=== PATIENT | male | born 1950 | race Caucasian/White ===

== ENCOUNTER 2016-10-14 09:51 | Emergency (ER) | payer MEDICARE, OTHER ==
[2016-10-14 10:02] VITALS: BP 166/85
--- NOTE | 2016-10-14 10:30 | EDM.PDOC ---
ED HPI GENERAL MEDICAL PROBLEM - General Chief Complaint: Genitourinary Problem Stated Complaint: UNABLE TO URINATE POST PROSTATE BIOPSY YESTERDAY Time Seen by Provider: 10/14/16 10:05 Source of Information: Reports: Patient, Family History Limitations: Reports: No Limitations - History of Present Illness INITIAL COMMENTS - FREE TEXT/NARRATIVE: The patient had a prostate biopsy yesterday. He was able to urinate after the procedure and on the way home. He has not been able to urinate since 2am. He has 10 out of 10 pain in the superpubic area. He denies, fever, chills, cough, chest pain, shortness of breath, nausea or vomiting. He is diaphoretic. Onset: Today (2am) Duration: Hour(s): Location: Reports: Abdomen (Suprapubic) Quality: Reports: Sharp Severity: Severe Improves with: Reports: None Worsens with: Reports: None Context: Reports: Activity (He had a prostate biopsy yesterday) Associated Symptoms: Reports: No Other Symptoms Bladder Pain Score (Numeric/FACES): 10 - Related Data Allergies Allergy/AdvReac Type Severity Reaction Status Date / Time ciprofloxacin [From Cipro] Allergy Swollen Verified 10/14/16 10:04 Eyes latex Allergy Rash Verified 10/14/16 10:04 lidocaine Allergy Swollen Verified 10/14/16 10:04 Eyes povidone-iodine Allergy Itching Verified 10/14/16 10:20 [From Betadine] procaine Allergy Airway Verified 10/14/16 10:41 Tightness soap [From Betadine] Allergy Rash Verified 10/14/16 10:41 Home Meds: Home Meds Propranolol [Inderal LA] 80 mg PO BEDTIME 10/14/16 [History] Propranolol [Inderal LA] 120 mg PO ACBREAKFAST 10/14/16 [History] Sulfamethoxazole/Trimethoprim [Bactrim 400-80 MG] 2 tab PO BID 10/14/16 [History ] Past Medical History Cardiovascular History: Reports: [place] Respiratory History: Reports: COPD Psychiatric History: Reports: Addiction Other Psychiatric History: smoking and alcohol Dermatologic History: Reports: Eczema - Past Surgical History GI Surgical History: Reports: Appendectomy, Hernia Repair/Other Male Surgical History: Reports: Prostate Biopsy Other Musculoskeletal Surgeries/Procedures:: back surgery x2, neck surgery x2 Social & Family History - Family History Family Medical History: Noncontributory - Tobacco Use Smoking Status *Q: Former Smoker Used Tobacco, but Quit: Yes Month Tobacco Last Used: 2014 - Caffeine Use Caffeine Use: Reports: None - Recreational Drug Use Recreational Drug Use: No ED ROS GENERAL - Review of Systems Review Of Systems: See Below Constitutional: Reports: No Symptoms HEENT: Reports: No Symptoms Respiratory: Reports: No Symptoms Cardiovascular: Reports: No Symptoms Endocrine: Reports: No Symptoms GI/Abdominal: Reports: Abdominal Pain (Suprapubic) : Reports: Urinary Retention Musculoskeletal: Reports: No Symptoms Skin: Reports: No Symptoms ED EXAM, RENAL/ - Physical Exam Exam: See Below Exam Limited By: No Limitations General Appearance: Alert, Moderate Distress Ears: Normal External Exam Nose: Normal Inspection Head: Atraumatic, Normocephalic Neck: Normal Inspection Respiratory/Chest: No Respiratory Distress, Lungs Clear, Normal Breath Sounds Cardiovascular: Regular Rate, Rhythm, No Edema, No Murmur GI/Abdominal: Soft, Distended (suprapubic), Tender (Moderate to the lower abdomen.) Course - Vital Signs Last Recorded V/S: Last Vital Signs Temp 96.6 F 10/14/16 09:59 Pulse 57 L 10/14/16 09:59 Resp 18 10/14/16 09:59 BP 166/85 H 10/14/16 09:59 Pulse Ox 94 L 10/14/16 09:59 - Orders/Labs/Meds Orders: Active Orders 24 hr Category Date Time Status Insert Grijalva Catheter [Insert Urinary Catheter] [OM.PC] Care 10/14/16 10:15 Ordered Q24H Urinary Catheter Assessment [RC] ASDIRECTED Care 10/14/16 10:13 Active Labs: Laboratory Tests 10/14/16 Range/Units 10:56 Urine Color Light yellow (Yellow) Urine Appearance Clear (Clear) Urine pH 6.5 (5.0-8.0) Ur Specific [place] 1.015 (1.005-1.030) Urine Protein Negative (Negative) Urine Glucose (UA) Negative (Negative) Urine Ketones Negative (Negative) Urine Occult Blood 2+ H (Negative) Urine Nitrite Negative (Negative) Urine Bilirubin Negative (Negative) Urine Urobilinogen 0.2 (0.2-1.0) Ur Leukocyte Esterase Negative (Negative) Urine RBC 5-10 H (0-5) /hpf Urine WBC 0-5 (0-5) /hpf Ur Epithelial Cells Not seen (0-5) /hpf Urine Bacteria Few (FEW) /hpf Urine Mucus Few (FEW) /hpf - Re-Assessments/Exams Free Text/Narrative Re-Assessment/Exam: 10/14/16 10:29 I ordered a grijalva cath and I will get a UA. 10/14/16 11:49 There was over 1500mls of urine drained from his bladder. His UA was negative for UTI. He had a small amount of blood. I will leave the catheter in and I will have him call his urologist Dr Jimenes. Departure - Departure Time of Disposition: 11:50 Disposition: Home, Self-Care 01 Condition: Good Clinical Impression: Acute urinary retention - Discharge Information Referrals: Yumiko Kate, [employer] [Primary Care Provider] - Forms: ED Department Discharge Additional Instructions: Leave the grijalva catheter in place. Call Dr Jimenes's office to see when he would want the catheter out. Please return if you have any more problems. - My Orders Last 24 Hours: My Active Orders 10/14/16 10:13 Urinary Catheter Assessment [RC] ASDIRECTED 10/14/16 10:15 Insert Grijalva Catheter [Insert Urinary Catheter] [OM.PC] Q24H - Assessment/Plan Last 24 Hours: My Active Orders 10/14/16 10:13 Urinary Catheter Assessment [RC] ASDIRECTED 10/14/16 10:15 Insert Grijalva Catheter [Insert Urinary Catheter] [OM.PC] Q24H
== END 2016-10-14 12:05 | disposition home or self-care (01) ==
LOC: JD.ED 09:51
DX: R33.9 Retention of urine, unspecified (principal); I25.2 Old myocardial infarction; J44.9 Chronic obstructive pulmonary disease, unspecified; Z90.49 Acquired absence of other specified parts of digestive tract; Z98.890 Other specified postprocedural states; Z87.891 Personal history of nicotine dependence; Z88.8 Allergy status to other drugs, medicaments and biological substances; Z88.1 Allergy status to other antibiotic agents; Z91.040 Latex allergy status
CPT/HCPCS: 51702; 81001; 99283; 99284-25

== ENCOUNTER 2016-11-04 09:00 | Emergency (ER) | payer MEDICARE, OTHER ==
--- NOTE | 2016-11-04 15:43 | EDM.PDOC ---
ED HPI GENERAL MEDICAL PROBLEM - General Chief Complaint: Genitourinary Problem Stated Complaint: CATHETER NOT WORKING Time Seen by Provider: 11/04/16 09:41 Source of Information: Reports: Patient, Family (), RN Notes Reviewed History Limitations: Reports: No Limitations - History of Present Illness INITIAL COMMENTS - FREE TEXT/NARRATIVE: The patient states that he was unable to urinate this past Wednesday and Wednesday, 10/31/2016 and 11/01/2016. A Da Silva catheter was placed at the [facility] on 11/02/2016. The patient states that the Da Silva initially worked, then stopped working the same day, after he developed gross hematuria. He states that he has not had any urine output into the Da Silva since then. He has since developed suprapubic abdominal pain. He states that he contacted the [facility], and they suggested that his pain was due to irritation from the Da Silva, and did not recommend any treatment. The patient states that he had prior inability to urinate after a prostate biopsy, requiring a catheter for about one week. The patient's urologist is Dr. Jimenes. His PCP is Yumiko Kate. Lower Abdomen Pain Score (Numeric/FACES): 8 - Related Data Allergies Allergy/AdvReac Type Severity Reaction Status Date / Time ciprofloxacin [From Cipro] Allergy Swollen Verified 11/04/16 09:17 Eyes latex Allergy Rash Verified 11/04/16 09:17 lidocaine Allergy Swollen Verified 11/04/16 09:17 Eyes povidone-iodine Allergy Itching Verified 11/04/16 09:17 [From Betadine] procaine Allergy Airway Verified 11/04/16 09:17 Tightness soap [From Betadine] Allergy Rash Verified 11/04/16 09:17 Home Meds: Home Meds Propranolol [Inderal LA] 80 mg PO BEDTIME 10/14/16 [History] Propranolol [Inderal LA] 120 mg PO ACBREAKFAST 10/14/16 [History] Tamsulosin [Flomax] 1 tab PO DAILY 11/04/16 [History] Past Medical History Genitourinary History: Reports: BPH, Renal Calculus Neurological History: Reports: Other (See Below) (Essential tremor) Dermatologic History: Reports: Eczema - Past Surgical History GI Surgical History: Reports: Appendectomy, Hernia, Abdominal (umbilical), Hernia, Inguinal (right) Male Surgical History: Reports: Prostate Biopsy Neurological Surgical History: Reports: C-Spine (ACDF + PCDF), Lumbar Spine ( fusion x 2) Musculoskeletal Surgical History: Reports: Shoulder Surgery (right, open) Social & Family History - Family History Family Medical History: Noncontributory - Tobacco Use Smoking Status *Q: Former Smoker Years of Tobacco use: 40 Packs/Tins Daily: 1.5 Month Tobacco Last Used: Quit 2014 - Caffeine Use Caffeine Use: Reports: Soda - Alcohol Use Alcohol Use History: Yes Alcohol Use in Last Twelve Months: No - Recreational Drug Use Recreational Drug Use: No - Living Situation & Occupation Living situation: Reports: , with Spouse Occupation: Retired ED ROS GENERAL - Review of Systems Review Of Systems: See Below Constitutional: Reports: No Symptoms HEENT: Reports: No Symptoms Respiratory: Reports: No Symptoms Cardiovascular: Reports: No Symptoms Endocrine: Reports: No Symptoms GI/Abdominal: Reports: No Symptoms : Reports: Hematuria, Urinary Retention Musculoskeletal: Reports: No Symptoms Skin: Reports: No Symptoms Neurological: Reports: No Symptoms Psychiatric: Reports: No Symptoms Hematologic/Lymphatic: Reports: No Symptoms Immunologic: Reports: No Symptoms ED EXAM, RENAL/ - Physical Exam Exam: See Below Exam Limited By: No Limitations General Appearance: Alert, WD/WN, Mild Distress (appears quite uncomfortable) Eye Exam: Bilateral Eye: Normal Inspection Ears: Normal External Exam, Hearing Grossly Normal Nose: Normal Inspection, No Blood Throat/Mouth: Normal Inspection, Normal Lips, Normal Voice, No Airway Compromise Head: Atraumatic, Normocephalic Neck: Normal Inspection, Full Range of Motion Respiratory/Chest: No Respiratory Distress, Lungs Clear, Normal Breath Sounds, No Accessory Muscle Use Cardiovascular: Normal Peripheral Pulses, Regular Rate, Rhythm, No Gallop, No JVD, No Murmur, No Rub GI/Abdominal: Normal Bowel Sounds, Soft, No Organomegaly, No Distention, No Abnormal Bruit, No Mass, Distended, Tender (In the suprapubic region only. Nontender elsewhere.) (Male) Exam: Deferred Rectal (Males) Exam: Deferred Back Exam: Normal Inspection, Full Range of Motion, NT Extremities: Normal Inspection, Normal Range of Motion, No Pedal Edema, Normal Capillary Refill Neurological: Alert, Oriented, Normal Cognition, No Motor/Sensory Deficits Psychiatric: Normal Affect Skin Exam: Warm, Dry, Intact, Normal Color, No Rash Lymphatic: No Adenopathy Course - Vital Signs Last Recorded V/S: Last Vital Signs Temp 36.7 C 11/04/16 09:10 Pulse 68 11/04/16 16:08 Resp 16 11/04/16 16:08 BP 127/80 11/04/16 16:08 Pulse Ox 99 11/04/16 16:08 - Re-Assessments/Exams Free Text/Narrative Re-Assessment/Exam: 11/04/16 15:37 The nurse attempted to irrigate through the patient's existing catheter, however , she was getting very poor return, therefore she replaced it with a new one. The patient has subsequently urinated approximately 2100 mL of dark jeremy urine. Departure - Departure Time of Disposition: 15:38 Disposition: Home, Self-Care 01 Condition: Good Clinical Impression: Obstructed Da Silva catheter, Gross hematuria - Discharge Information Instructions: Da Silva Catheter Care, Adult, [id number], Hematuria, Adult Referrals: Sky Jimenes MD [Physician] - Forms: ED Department Discharge Additional Instructions: You were seen in the emergency room after being unable to urinate through your Da Silva catheter since 11/02/2016. Your Da Silva catheter was obstructed with blood clot. After changing to a new catheter, approximately 2100 mL of urine was drained. Continue to manage this Da Silva catheter as you have the previous one. Make sure that the bag is below your body height when you lie down. Follow-up with your Urologist, Dr. Jimenes, at the next available appointment. If any other problems, or if the catheter obstructs again, please do not hesitate to return to the ER.
[2016-11-04 16:10] VITALS: BP 127/80
== END 2016-11-04 16:00 | disposition home or self-care (01) ==
LOC: JD.ED 09:00
DX: T83.091A Other mechanical complication of indwelling urethral catheter, initial encounter (principal); R31.0 Gross hematuria; Z90.49 Acquired absence of other specified parts of digestive tract; Z87.442 Personal history of urinary calculi; Z98.890 Other specified postprocedural states; Z79.899 Other long term (current) drug therapy; Z88.6 Allergy status to analgesic agent; Z88.1 Allergy status to other antibiotic agents; Z88.8 Allergy status to other drugs, medicaments and biological substances; Z91.040 Latex allergy status; Z87.891 Personal history of nicotine dependence
CPT/HCPCS: 51702; 51798; 99282; 99283-25

== ENCOUNTER 2016-12-19 13:44 | Emergency (ER) | payer MEDICARE, OTHER ==
[2016-12-19 13:57] VITALS: BP 147/71
[2016-12-19] MEDS ORDERED: HYDROmorphone 0.5 MG/0.5 ML Syringe IVPUSH ONE (14:57)
[2016-12-19] MEDS ORDERED: Sodium Chloride 0.9% 10 ML Syringe FLUSH PRN (14:58)
[2016-12-19] MEDS ORDERED: Belladonna Alkaloids/Opium 16.2-30 MG Supp RECTAL ONE (14:58)
--- NOTE | 2016-12-19 15:00 | EDM.PDOC ---
ED HPI GENERAL MEDICAL PROBLEM - General Chief Complaint: Genitourinary Problem Stated Complaint: GROIN PAIN Time Seen by Provider: 12/19/16 14:42 Source of Information: Reports: Patient History Limitations: Reports: No Limitations - History of Present Illness INITIAL COMMENTS - FREE TEXT/NARRATIVE: Patient is a 66 y/o male who presents to the E.D. complaining of abdias hematuria from indwelling grijalva catheter. States he has an enlarged prostate requiring laser resection. Meantime patient has had a indwelling grijalva catheter in place. States yesterday while kneeling down felt a pop to his suprapubic region with instant pain. States ever since has had little urine output with increasing pain to the lower abdomen. Has history of reoccurring UTI's and states last urine culture was positive for bacteria. He was instructed to take macrobid 10 days prior to surgery that will take place 2016. Denies Fever/chills, n/v, drainage around catheter or any additional complaints. Bladder Pain Score (Numeric/FACES): 8 - Related Data Allergies Allergy/AdvReac Type Severity Reaction Status Date / Time ciprofloxacin [From Cipro] Allergy Swollen Verified 11/04/16 09:17 Eyes latex Allergy Rash Verified 11/04/16 09:17 lidocaine Allergy Swollen Verified 11/04/16 09:17 Eyes povidone-iodine Allergy Itching Verified 11/04/16 09:17 [From Betadine] procaine Allergy Airway Verified 11/04/16 09:17 Tightness soap [From Betadine] Allergy Rash Verified 11/04/16 09:17 Home Meds: Home Meds Propranolol [Inderal LA] 80 mg PO BEDTIME 10/14/16 [History] Propranolol [Inderal LA] 120 mg PO ACBREAKFAST 10/14/16 [History] Tamsulosin [Flomax] 1 tab PO DAILY 11/04/16 [History] Past Medical History Cardiovascular History: Reports: Hypertension, [place] Respiratory History: Reports: COPD Genitourinary History: Reports: BPH, Renal Calculus Neurological History: Reports: Other (See Below) Psychiatric History: Reports: Addiction Other Psychiatric History: smoking and alcohol Dermatologic History: Reports: Eczema - Past Surgical History GI Surgical History: Reports: Appendectomy, Hernia, Abdominal, Hernia, Inguinal Male Surgical History: Reports: Prostate Biopsy Neurological Surgical History: Reports: C-Spine, Lumbar Spine Musculoskeletal Surgical History: Reports: Shoulder Surgery Social & Family History - Family History Family Medical History: Noncontributory - Tobacco Use Smoking Status *Q: Never Smoker Years of Tobacco use: 40 Packs/Tins Daily: 1.5 Used Tobacco, but Quit: Yes Month Tobacco Last Used: Quit 2014 - Caffeine Use Caffeine Use: Reports: Soda - Recreational Drug Use Recreational Drug Use: No - Living Situation & Occupation Living situation: Reports: , with Spouse Occupation: Retired ED ROS GENERAL - Review of Systems Review Of Systems: ROS reveals no pertinent complaints other than HPI. ED EXAM, RENAL/ - Physical Exam Exam: See Below Exam Limited By: No Limitations General Appearance: Alert, WD/WN, No Apparent Distress Ears: Normal External Exam Nose: Normal Inspection Throat/Mouth: Normal Voice, No Airway Compromise Neck: Normal Inspection, Supple Respiratory/Chest: No Respiratory Distress, Lungs Clear, Normal Breath Sounds Cardiovascular: Normal Peripheral Pulses, Regular Rate, Rhythm GI/Abdominal: Normal Bowel Sounds, No Organomegaly, Distended, Tender ( Suprapubic region. ) (Male) Exam: Other (Grijalva Catheter in place with no hematuria/urine from around grijalva catheter in place. Grijalva bag has abdias hematuria present. ) Back Exam: Normal Inspection. No: CVA Tenderness (L), CVA Tenderness (R) Extremities: Normal Inspection Neurological: Alert, Oriented, CN II-XII Intact, Normal Cognition Psychiatric: Normal Affect, Normal Mood Skin Exam: Warm, Dry, Intact, Normal Color Course - Vital Signs Last Recorded V/S: Last Vital Signs Temp 97.1 F 12/19/16 13:55 Pulse 82 12/19/16 13:55 Resp 20 12/19/16 13:55 BP 147/71 H 12/19/16 13:55 Pulse Ox 95 12/19/16 13:55 - Orders/Labs/Meds Labs: Laboratory Tests 12/19/16 12/19/16 12/19/16 Range/Units 15:15 15:15 15:50 WBC 13.35 H (4.23-9.07) K/mm3 RBC 5.19 (4.63-6.08) M/mm3 Hgb 15.9 (13.7-17.5) gm/L Hct 46.3 (40.1-51.0) % MCV 89.2 (79.0-92.2) fl MCH 30.6 (25.7-32.2) pg MCHC 34.3 (32.2-35.5) g/dl RDW Std Deviation 47.8 H (35.1-43.9) fL Plt Count 170 (163-337) K/mm3 MPV 11.3 (9.4-12.3) fl Neut % (Auto) 77.8 H (34.0-67.9) % Lymph % (Auto) 12.4 L (21.8-53.1) % [place] % (Auto) 7.7 (5.3-12.2) % Eos % (Auto) 1.3 (0.8-7.0) Baso % (Auto) 0.4 (0.1-1.2) % Neut # (Auto) 10.39 H (1.78-5.38) K/mm3 Lymph # (Auto) 1.65 (1.32-3.57) K/mm3 [place] # (Auto) 1.03 H (0.30-0.82) K/mm3 Eos # (Auto) 0.18 (0.04-0.54) K/mm3 Baso # (Auto) 0.05 (0.01-0.08) K/mm3 Sodium 141 (136-145) mEq/L Potassium 3.8 (3.5-5.1) mEq/L Chloride 105 (98-107) mEq/L Carbon Dioxide 27 (21-32) mEq/L Anion Gap 12.8 (5-15) BUN 18 (7-18) mg/dL Creatinine 1.1 (0.7-1.3) mg/dL Est Cr Clr Drug Dosing 74.65 mL/min Estimated GFR (MDRD) > 60 (>60) mL/min BUN/Creatinine Ratio 16.4 (14-18) Glucose 117 H (80-115) mg/dL Calcium 9.8 (8.5-10.1) mg/dL Total Bilirubin 0.7 (0.2-1.0) mg/dL AST 32 (15-37) U/L ALT 27 (16-63) U/L Alkaline Phosphatase 84 (46-116) U/L C-Reactive Protein 2.4 H* (<1.0) mg/dL Total Protein 8.1 (6.4-8.2) g/dl Albumin 4.1 (3.4-5.0) g/dl Globulin 4.0 gm/dL Albumin/Globulin Ratio 1.0 (1-2) Urine Color Yellow (Yellow) Urine Appearance Cloudy H (Clear) Urine pH 6.0 (5.0-8.0) Ur Specific [place] 1.020 (1.005-1.030) Urine Protein Negative (Negative) Urine Glucose (UA) Negative (Negative) Urine Ketones Negative (Negative) Urine Occult Blood 2+ H (Negative) Urine Nitrite Positive H (Negative) Urine Bilirubin Negative (Negative) Urine Urobilinogen 0.2 (0.2-1.0) Ur Leukocyte Esterase 1+ H (Negative) Urine RBC 10-20 H (0-5) /hpf Urine WBC >100 H (0-5) /hpf Ur Epithelial Cells 0-5 (0-5) /hpf Urine Bacteria Many H (FEW) /hpf Urine Mucus Few (FEW) /hpf Meds: Medications Discontinued Medications Generic Name Dose Route Start Last Admin Trade Name Freq PRN Reason Stop Dose Admin Belladonna Alkaloids/Opium 1 supp 12/19/16 14:58 12/19/16 15:20 B & O Supprettes No. 15a RECTAL 12/19/16 14:59 1 supp ONETIME ONE Administration Hydromorphone HCl 0.5 mg 12/19/16 14:57 12/19/16 15:20 Dilaudid IVPUSH 12/19/16 14:58 0.5 mg ONETIME ONE Administration Nitrofurantoin Macrocrystals 100 mg 12/19/16 17:19 12/19/16 17:23 Macrobid PO 12/19/16 17:20 100 mg ONETIME ONE Administration Sodium Chloride 10 ml 12/19/16 14:58 12/19/16 15:21 Saline Flush FLUSH 10 ml ASDIRECTED PRN Administration Keep Vein Open - Re-Assessments/Exams Free Text/Narrative Re-Assessment/Exam: IV established with Dilaudid 0.5 mg IVP. Ordered. No rectal suppository for bladder spasms. Bladder scan will be obtained prior to removing the Grijalva catheter. Insertion a new Grijalva catheter will be placed. UA and urine culture will be obtained. Basic labs ordered. Per nursing staff Grijalva was flushed with copious amounts of blood clots present. New Grijalva was inserted was was slightly larger. Partially 60 12/19/161656 Labs reviewed: White blood cell count 13.35, hemoglobin 15.9, neutrophil percentage is 77.8, neutrophil number is 10.39, chemistry panel essentially normal. CRP 2.4. UA revealed appearance cloudy, occult blood 2+, nitrates positive, leukocyte esterase 1+, urine rbc's 10-20, urine wbc's greater than 100, urine bacteria many. Urine culture obtained. 1656 Contacted the on-call urologist at [facility]. Dr. Rankin suggested no antibiotic therapy. Patient has colonization secondary to chronic catheter use. As long as the patient's comfortable and does not have a fever or drastic elevation in WBC no antibiotics are required. At this point I did share the results of his labs and he does not believe patient needs antibiotics. We' ll discharge patient home with instructions as documented. 1707 Per nursing staff urine smells, sedimentation present, grossly positive for infection. Not colonization. Spoke with Dr. Rankin again. Reviewed last office visit on December 11, 2016. Patient was discharged with a prescription for Macrobid to start taking 10 days prior to surgery. Dr. Rankin did review sensitivity list from previous urine culture completed at that time. He suggest starting the Macrobid today. Will have patient Contact Dr. Maddox's clinic this coming Wednesday to discuss recent event and start of antibiotic. Discharge instructions as documented. 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, Grijalva catheter in place, Gross hematuria, Acute urinary retention UTI (urinary tract infection) Qualifiers: Urinary tract infection type: catheter-associated UTI Indwelling urinary catheter type: indwelling urethral catheter Encounter type: initial encounter Qualified Code(s): T83.511A - Infection and inflammatory reaction due to indwelling urethral catheter, initial encounter Hematuria Qualifiers: Hematuria type: gross Qualified Code(s): R31.0 - Gross hematuria Obstructed Grijalva catheter Qualifiers: Encounter type: initial encounter Qualified Code(s): T83.091A - Other mechanical complication of indwelling urethral catheter, initial encounter - Discharge Information Instructions: Grijalva Catheter Care, Adult, Urinary Tract Infection, Adult, Easy- to-Read Referrals: Yumiko Kate NP [Primary Care Provider] - Andrea Maddox MD [Ordering Only Provider] - Forms: ED Department Discharge Additional Instructions: As discussed will have you start taking Macrobid as prescribed by Dr. Maddox. Call his office Wednesday morning to advise him that grijalva catheter was replaced and started on the Macrobid. Push the fluids. Return to the ED as needed for any new or worsening symptoms.
[2016-12-19] MEDS ORDERED: Nitrofurantoin Monohydrate/Macrocrystalline 100 MG Cap PO ONE (17:19)
== END 2016-12-19 17:45 | disposition home or self-care (01) ==
LOC: JD.ED 13:44
DX: T83.511A Infection and inflammatory reaction due to indwelling urethral catheter, initial encounter (principal); T83.091A Other mechanical complication of indwelling urethral catheter, initial encounter; R31.0 Gross hematuria; R33.9 Retention of urine, unspecified; Z22.321 Carrier or suspected carrier of Methicillin susceptible Staphylococcus aureus; I10 Essential (primary) hypertension; I25.2 Old myocardial infarction; J44.9 Chronic obstructive pulmonary disease, unspecified; Z87.442 Personal history of urinary calculi; Z90.49 Acquired absence of other specified parts of digestive tract; Z98.890 Other specified postprocedural states; Z87.891 Personal history of nicotine dependence; Z79.899 Other long term (current) drug therapy; Z88.1 Allergy status to other antibiotic agents; Z88.6 Allergy status to analgesic agent; Z88.8 Allergy status to other drugs, medicaments and biological substances; Z91.040 Latex allergy status; Z91.048 Other nonmedicinal substance allergy status
CPT/HCPCS: 36415; 51702; 51798; 80053; 81001; 85025; 86140; 87086; 87088; 87186; 96374; 99284; A9270; J1170; J7050

== ENCOUNTER 2024-06-28 13:29 | Inpatient (IN) | payer MEDICARE, OTHER ==
[2024-06-28] MEDS ORDERED: Sodium Chloride 0.9% 10 ML Syringe FLUSH PRN ×2 (13:59→14:05)
[2024-06-28 14:11] LABS: EOSINOPHILS ABSOLUTE AUTO 0.2 K/mm3 (0.0-0.4); EOSINOPHILS PERCENT AUTO 0.8 % (0.0-6.0); HEMATOCRIT 15.6 % (42.0-52.0); IMMATURE GRAN ABSOLUTE AUTO 1.02 K/mm3 (0.00-0.05); IMMATURE GRAN PERCENT AUTO 5.6 % (0.0-0.4); LYMPHOCYTES PERCENT AUTO 16.6 % (24.0-44.0); MEAN CORPUSCULAR HEMOGLOBIN 38.9 pg (28.0-32.0); MEAN CORPUSCULAR HGB CONC 31.4 g/dl (32.0-36.0); MEAN PLATELET VOLUME 13.5 fl (9.4-12.4); MONOCYTES ABSOLUTE AUTO 5.8 K/mm3 (0.0-0.8); MONOCYTES PERCENT AUTO 31.6 % (0.0-8.0); NEUTROPHILS ABSOLUTE AUTO 8.3 K/mm3 (1.8-7.7); NEUTROPHILS PERCENT AUTO 45.4 % (41.0-71.0); NRBC ABSOLUTE 0.02 (0.00-0.02); NRBC PERCENT 0.1 % (0.0-0.2); RED BLOOD CELL COUNT 1.26 M/mm3 (4.52-5.90)
[2024-06-28 14:24] LABS: HEMOGLOBIN 4.9 gm/dl (14.0-18.0); MEAN CORPUSCULAR VOLUME 123.8 fl (83.0-99.0); WHITE BLOOD CELL COUNT,WBC 18.26 K/mm3 (3.9-11.3)
[2024-06-28 14:26] LABS: PLATELET COUNT,PLT 205 K/mm3 (150-400)
[2024-06-28 14:36] LABS: A/G RATIO 1.1 (1-2); ALBUMIN 3.7 g/dl (3.4-5.0); ANION GAP 16.9 (5-15); BILIRUBIN TOTAL 0.4 mg/dL (0.2-1.0); BUN/CREATININE RATIO 15.8 (14-18); CALCIUM 8.4 mg/dL (8.5-10.1); CREATININE 1.2 mg/dL (0.7-1.3); EST CRCL DRUG DOSING (CG) 60.18 mL/min; MAGNESIUM 2.1 mg/dL (1.8-2.4); POTASSIUM,K 3.9 mEq/L (3.5-5.1); PROTEIN TOTAL,TP 7.1 g/dl (6.4-8.2)
[2024-06-28] MEDS: Iopamidol 612 MG/ML 100 ML Bottle IVPUSH ONE (14:48)
[2024-06-28 15:32] LABS: SLIDE REVIEW ABNORMAL SMEAR
[2024-06-28] MEDS ORDERED: Acetaminophen 325 MG Tab PO PRN (15:47)
[2024-06-28 15:57] LABS: RETICULOCYTE COUNT PERCENT 2.9 % (0.50-2.00)
[2024-06-28] MEDS: cefTRIAXone 2 GM Vial IVPUSH ONE (16:28)
[2024-06-28 17:16] LABS: TSH 1.257 uIU/mL (0.358-3.74)
[2024-06-28 17:21] LABS: LACTIC ACID 1.5 mmol/L (0.4-2.0)
[2024-06-28] MEDS ORDERED: 50% Dextrose in Water 50 ML Syringe IVPUSH PRN (17:46)
[2024-06-28 18:03] LABS: INR 1.15; PROTHROMBIN TIME 12.1 SECONDS (9.7-12.0)
[2024-06-28 20:18] LABS: FOLIC ACID 56.7 ng/mL (8.6-58.9)
[2024-06-28] MEDS: Doxycycline 100 MG in Sodium Chloride 0.9% 100 ML IV SCH (20:51)
[2024-06-28] MEDS ORDERED: Furosemide 20 MG/2 ML VIAL IVPUSH ONE (22:14)
[2024-06-28] MEDS: Insulin Lispro 100 Unit/ML 3 ML KwikPen SUBCUT SCH (22:20)
[2024-06-28] MEDS: Furosemide 20 MG/2 ML VIAL IVPUSH ONE (22:28)
[2024-06-29] MEDS: Furosemide 20 MG/2 ML VIAL IVPUSH ONE (04:34)
[2024-06-29 04:39] LABS: BASOPHILS PERCENT AUTO 0.1 % (0.0-1.0); EOSINOPHILS ABSOLUTE AUTO 0.1 K/mm3 (0.0-0.4); EOSINOPHILS PERCENT AUTO 0.7 % (0.0-6.0); HEMATOCRIT 22.6 % (42.0-52.0); HEMOGLOBIN 7.5 gm/dl (14.0-18.0); IMMATURE GRAN ABSOLUTE AUTO 0.84 K/mm3 (0.00-0.05); IMMATURE GRAN PERCENT AUTO 5.7 % (0.0-0.4); LYMPHOCYTES ABSOLUTE AUTO 2.8 K/mm3 (1.0-4.8); LYMPHOCYTES PERCENT AUTO 18.6 % (24.0-44.0); MEAN CORPUSCULAR HEMOGLOBIN 34.7 pg (28.0-32.0); MEAN CORPUSCULAR HGB CONC 33.2 g/dl (32.0-36.0); MEAN CORPUSCULAR VOLUME 104.6 fl (83.0-99.0); MEAN PLATELET VOLUME 13.6 fl (9.4-12.4); MONOCYTES ABSOLUTE AUTO 4.4 K/mm3 (0.0-0.8); NEUTROPHILS ABSOLUTE AUTO 6.6 K/mm3 (1.8-7.7); NEUTROPHILS PERCENT AUTO 44.9 % (41.0-71.0); PLATELET COUNT,PLT 166 K/mm3 (150-400); RED BLOOD CELL COUNT 2.16 M/mm3 (4.52-5.90); WHITE BLOOD CELL COUNT,WBC 14.75 K/mm3 (3.9-11.3)
[2024-06-29] MEDS: Propranolol 60 MG Cap.ER PO SCH (05:32)
[2024-06-29 05:41] LABS: A/G RATIO 1.1 (1-2); ALBUMIN 3.4 g/dl (3.4-5.0); ANION GAP 14.7 (5-15); BILIRUBIN TOTAL 0.6 mg/dL (0.2-1.0); BUN/CREATININE RATIO 16.4 (14-18); CALCIUM 8.3 mg/dL (8.5-10.1); CREATININE 1.1 mg/dL (0.7-1.3); EST CRCL DRUG DOSING (CG) 65.65 mL/min; POTASSIUM,K 3.7 mEq/L (3.5-5.1); PROTEIN TOTAL,TP 6.5 g/dl (6.4-8.2)
[2024-06-29 07:11] LABS: SLIDE REVIEW ABNORMAL SMEAR
[2024-06-29] MEDS: Potassium Chloride 20 MEQ Tab.ER PO ONE (09:52)
[2024-06-29 10:19] LABS: MAGNESIUM 2.1 mg/dL (1.8-2.4)
[2024-06-29 11:40] LABS: HEMATOCRIT 23.3 % (42.0-52.0); HEMOGLOBIN 7.7 gm/dl (14.0-18.0)
[2024-06-29 12:47] LABS: BANDS% 2 % (0-5); BASOPHILS% 0 % (0-1); EOSINOPHILS% 1 % (0-6); HYPERSEG Seen (Absent); HYPOCHRO 1+ /hpf; LYMPHOCYTES% 23 % (23-46); MACRO 3+ /hpf; MONOCYTES% 16 % (2-11); NEUTROPHILS% 50 % (41-71); PLT ESTIMATE Adequate; POLYCHRO 1+ /hpf; TEARDROP 1+ /hpf
[2024-06-29] MEDS: cefTRIAXone 1 GM Vial IVPUSH SCH (15:31)
[2024-06-29 20:11] LABS: HEMATOCRIT 23.6 % (42.0-52.0); HEMOGLOBIN 7.8 gm/dl (14.0-18.0)
[2024-06-29] MEDS: Melatonin 3 MG Tab PO SCH (21:27)
[2024-06-30 04:41] LABS: BASOPHILS PERCENT AUTO 0.1 % (0.0-1.0); EOSINOPHILS ABSOLUTE AUTO 0.1 K/mm3 (0.0-0.4); EOSINOPHILS PERCENT AUTO 0.8 % (0.0-6.0); HEMATOCRIT 23.2 % (42.0-52.0); HEMOGLOBIN 7.6 gm/dl (14.0-18.0); IMMATURE GRAN PERCENT AUTO 6.3 % (0.0-0.4); LYMPHOCYTES ABSOLUTE AUTO 2.7 K/mm3 (1.0-4.8); LYMPHOCYTES PERCENT AUTO 16.9 % (24.0-44.0); MEAN CORPUSCULAR HEMOGLOBIN 34.4 pg (28.0-32.0); MEAN CORPUSCULAR HGB CONC 32.8 g/dl (32.0-36.0); MEAN PLATELET VOLUME 13.6 fl (9.4-12.4); MONOCYTES ABSOLUTE AUTO 4.8 K/mm3 (0.0-0.8); MONOCYTES PERCENT AUTO 30.1 % (0.0-8.0); NEUTROPHILS ABSOLUTE AUTO 7.3 K/mm3 (1.8-7.7); NEUTROPHILS PERCENT AUTO 45.8 % (41.0-71.0); PLATELET COUNT,PLT 176 K/mm3 (150-400); RED BLOOD CELL COUNT 2.21 M/mm3 (4.52-5.90)
[2024-06-30 06:23] LABS: SLIDE REVIEW ABNORMAL SMEAR
[2024-06-30 14:47] VITALS: BP 106/57; PULSE 68
== END 2024-06-30 12:15 | disposition home or self-care (01) | DRG 811 ==
LOC: JD.ED 13:29 → JD.MS 15:47
PROVIDERS: ADMIT Family Medicine; ATTEND Family Medicine
PROC: 30233N1 Transfusion of Nonautologous Red Blood Cells into Peripheral Vein, Percutaneous Approach (ICD-10-PCS; 2024-06-28)
PROC: 30233N1 Transfusion of Nonautologous Red Blood Cells into Peripheral Vein, Percutaneous Approach (ICD-10-PCS; principal; 2024-06-29)
DX: D58.9 Hereditary hemolytic anemia, unspecified (principal); D64.89 Other specified anemias; J18.9 Pneumonia, unspecified organism; I47.20 Ventricular tachycardia, unspecified; I10 Essential (primary) hypertension; J44.9 Chronic obstructive pulmonary disease, unspecified; N40.0 Benign prostatic hyperplasia without lower urinary tract symptoms; G47.33 Obstructive sleep apnea (adult) (pediatric); Z91.048 Other nonmedicinal substance allergy status; R25.1 Tremor, unspecified; E11.9 Type 2 diabetes mellitus without complications; Z88.1 Allergy status to other antibiotic agents; Z91.040 Latex allergy status; Z88.8 Allergy status to other drugs, medicaments and biological substances; Z79.899 Other long term (current) drug therapy; I25.2 Old myocardial infarction; Z90.49 Acquired absence of other specified parts of digestive tract; Z98.890 Other specified postprocedural states
CPT/HCPCS: 74177; 80053; 82272; 82607; 82728; 82746; 83540; 83615; 83690; 83735; 84100; 84153; 84443; 84466; 84484; 85007; 85025; 85027; 85045; 85046; 85610; 86140; 86850; 86900; 86901; 86922; 93005; 99285; Q9967; 36415; 36430; 82947; 83605; 85014; 85018; 87040; 93306; 94660; 94761; A9270-GY; J0696; J1815; J1940; J3490; P9016

== ENCOUNTER 2025-01-27 10:46 | Inpatient (IN) | payer MEDICARE, OTHER ==
[2025-01-27 11:56] LABS: BASOPHILS ABSOLUTE AUTO 0.0 K/mm3 (0.0-0.2); BASOPHILS PERCENT AUTO 0.1 % (0.0-1.0); EOSINOPHILS ABSOLUTE AUTO 0.2 K/mm3 (0.0-0.4); EOSINOPHILS PERCENT AUTO 1.3 % (0.0-6.0); IMMATURE GRAN ABSOLUTE AUTO 0.16 K/mm3 (0.00-0.05); IMMATURE GRAN PERCENT AUTO 1.0 % (0.0-0.4); LYMPHOCYTES ABSOLUTE AUTO 2.9 K/mm3 (1.0-4.8); LYMPHOCYTES PERCENT AUTO 18.4 % (24.0-44.0); MEAN PLATELET VOLUME 13.2 fl (9.4-12.4); MONOCYTES ABSOLUTE AUTO 4.1 K/mm3 (0.0-0.8); MONOCYTES PERCENT AUTO 25.8 % (0.0-8.0); NEUTROPHILS ABSOLUTE AUTO 8.4 K/mm3 (1.8-7.7); NEUTROPHILS PERCENT AUTO 53.4 % (41.0-71.0); NRBC ABSOLUTE 0.00 (0.00-0.02); NRBC PERCENT 0.0 % (0.0-0.2); PLATELET COUNT,PLT 356 K/mm3 (150-400); RED BLOOD CELL COUNT 2.67 M/mm3 (4.52-5.90); WHITE BLOOD CELL COUNT,WBC 15.67 K/mm3 (3.9-11.3)
[2025-01-27 12:06] LABS: A/G RATIO 1.1 (1-2); ALANINE AMINOTRANSFERASE,ALT 31.0 U/L (16-63); ASPARTATE AMNIOTRANSFERASE,AST 22.0 U/L (15-37); BILIRUBIN TOTAL 0.5 mg/dL (0.2-1.0); BLOOD UREA NITROGEN,BUN 14.0 mg/dL (7-18); CARBON DIOXIDE,CO2 27.0 mEq/L (21-32); CHLORIDE,CL 109.0 mEq/L (98-107); CREATININE 1.2 mg/dL (0.7-1.3); EST CRCL DRUG DOSING (CG) 59.28 mL/min; ESTIMATED GFR 63.0 mL/min (>60); GLUCOSE RANDOM 180.0 mg/dL (70-99); POTASSIUM,K 3.5 mEq/L (3.5-5.1); PROTEIN TOTAL,TP 7.0 g/dl (6.4-8.2); SODIUM,NA 145.0 mEq/L (136-145)
[2025-01-27 12:13] LABS: LACTIC ACID 3.3 mmol/L (0.4-2.0)
[2025-01-27] MEDS: Sodium Chloride 0.9% 10 ML Syringe FLUSH PRN (12:40)
[2025-01-27 13:51] LABS: APPEARANCE,URINE CLEAR (Clear); GLUCOSE,URINE TRACE (Negative); OCCULT BLOOD,URINE NEGATIVE (Negative)
[2025-01-27 13:59] LABS: EPITHELIAL CELLS,URINE 0-5 /hpf (0-5)
[2025-01-27] MEDS ORDERED: Albuterol 0.083% 2.5 MG/3 ML Neb Soln NEB PRN (14:26)
[2025-01-27] MEDS: VANCOmycin 1.75 GM/350 ML 1.75 GM in Premix Bag 1 BAG IV ONE (15:08)
[2025-01-27 18:15] LABS: LACTIC ACID 1.7 mmol/L (0.4-2.0)
[2025-01-28 05:33] LABS: BASOPHILS ABSOLUTE AUTO 0.0 K/mm3 (0.0-0.2); BASOPHILS PERCENT AUTO 0.1 % (0.0-1.0); EOSINOPHILS ABSOLUTE AUTO 0.2 K/mm3 (0.0-0.4); EOSINOPHILS PERCENT AUTO 0.8 % (0.0-6.0); IMMATURE GRAN ABSOLUTE AUTO 0.21 K/mm3 (0.00-0.05); IMMATURE GRAN PERCENT AUTO 1.0 % (0.0-0.4); LYMPHOCYTES ABSOLUTE AUTO 2.7 K/mm3 (1.0-4.8); LYMPHOCYTES PERCENT AUTO 12.7 % (24.0-44.0); MEAN PLATELET VOLUME 12.4 fl (9.4-12.4); MONOCYTES ABSOLUTE AUTO 6.6 K/mm3 (0.0-0.8); MONOCYTES PERCENT AUTO 31.2 % (0.0-8.0); NEUTROPHILS ABSOLUTE AUTO 11.5 K/mm3 (1.8-7.7); NEUTROPHILS PERCENT AUTO 54.2 % (41.0-71.0); NRBC ABSOLUTE 0.00 (0.00-0.02); NRBC PERCENT 0.0 % (0.0-0.2); PLATELET COUNT,PLT 329 K/mm3 (150-400); RED BLOOD CELL COUNT 2.44 M/mm3 (4.52-5.90); WHITE BLOOD CELL COUNT,WBC 21.25 K/mm3 (3.9-11.3)
[2025-01-28 05:58] LABS: A/G RATIO 1.0 (1-2); ALANINE AMINOTRANSFERASE,ALT 26.0 U/L (16-63); ASPARTATE AMNIOTRANSFERASE,AST 20.0 U/L (15-37); BILIRUBIN TOTAL 0.7 mg/dL (0.2-1.0); BLOOD UREA NITROGEN,BUN 10.0 mg/dL (7-18); CARBON DIOXIDE,CO2 24.0 mEq/L (21-32); CHLORIDE,CL 107.0 mEq/L (98-107); CREATININE 1.0 mg/dL (0.7-1.3); EST CRCL DRUG DOSING (CG) 71.13 mL/min; ESTIMATED GFR 79.0 mL/min (>60); GLUCOSE RANDOM 154.0 mg/dL (70-99); POTASSIUM,K 3.5 mEq/L (3.5-5.1); PROTEIN TOTAL,TP 6.5 g/dl (6.4-8.2); SODIUM,NA 140.0 mEq/L (136-145)
[2025-01-28] MEDS: Potassium Chloride 20 MEQ Tab.ER PO ONE (09:26)
[2025-01-28] MEDS: Cefepime 2 GM in Water For Injection, Sterile 20 ML IVPUSH SCH (10:58)
[2025-01-28] MEDS: VANCOmycin 1.25 GM/250 ML 1.25 GM in Premix Bag 1 BAG IV SCH (12:11)
[2025-01-28] MEDS: Ondansetron 4 MG/2 ML SDV IV PRN (12:11)
[2025-01-28] MEDS: Insulin Lispro 100 Unit/ML 3 ML KwikPen SUBCUT SCH (19:31)
[2025-01-29 05:57] LABS: BASOPHILS ABSOLUTE AUTO 0.0 K/mm3 (0.0-0.2); BASOPHILS PERCENT AUTO 0.1 % (0.0-1.0); EOSINOPHILS ABSOLUTE AUTO 0.3 K/mm3 (0.0-0.4); EOSINOPHILS PERCENT AUTO 1.4 % (0.0-6.0); IMMATURE GRAN ABSOLUTE AUTO 0.21 K/mm3 (0.00-0.05); IMMATURE GRAN PERCENT AUTO 1.1 % (0.0-0.4); LYMPHOCYTES ABSOLUTE AUTO 2.9 K/mm3 (1.0-4.8); LYMPHOCYTES PERCENT AUTO 15.2 % (24.0-44.0); MEAN PLATELET VOLUME 13.0 fl (9.4-12.4); MONOCYTES ABSOLUTE AUTO 6.7 K/mm3 (0.0-0.8); MONOCYTES PERCENT AUTO 34.9 % (0.0-8.0); NEUTROPHILS ABSOLUTE AUTO 9.0 K/mm3 (1.8-7.7); NEUTROPHILS PERCENT AUTO 47.3 % (41.0-71.0); NRBC ABSOLUTE 0.00 (0.00-0.02); NRBC PERCENT 0.0 % (0.0-0.2); PLATELET COUNT,PLT 324 K/mm3 (150-400); RED BLOOD CELL COUNT 2.35 M/mm3 (4.52-5.90); WHITE BLOOD CELL COUNT,WBC 19.07 K/mm3 (3.9-11.3)
[2025-01-29 06:22] LABS: A/G RATIO 0.9 (1-2); ALANINE AMINOTRANSFERASE,ALT 24.0 U/L (16-63); ASPARTATE AMNIOTRANSFERASE,AST 20.0 U/L (15-37); BILIRUBIN TOTAL 0.6 mg/dL (0.2-1.0); BLOOD UREA NITROGEN,BUN 9.0 mg/dL (7-18); CARBON DIOXIDE,CO2 22.0 mEq/L (21-32); CHLORIDE,CL 108.0 mEq/L (98-107); CREATININE 1.0 mg/dL (0.7-1.3); EST CRCL DRUG DOSING (CG) 71.13 mL/min; ESTIMATED GFR 79.0 mL/min (>60); GLUCOSE RANDOM 153.0 mg/dL (70-99); POTASSIUM,K 3.6 mEq/L (3.5-5.1); PROTEIN TOTAL,TP 6.4 g/dl (6.4-8.2); SODIUM,NA 142.0 mEq/L (136-145); VANCOMYCIN RANDOM 18.8 ug/mL
[2025-01-29] MEDS: Potassium Chloride 20 MEQ Tab.ER PO ONE (15:24)
[2025-01-29 15:47] LABS: MEAN PLATELET VOLUME 12.7 fl (9.4-12.4); NRBC ABSOLUTE 0.00 (0.00-0.02); NRBC PERCENT 0.0 % (0.0-0.2); PLATELET COUNT,PLT 325 K/mm3 (150-400); RED BLOOD CELL COUNT 2.81 M/mm3 (4.52-5.90); WHITE BLOOD CELL COUNT,WBC 21.03 K/mm3 (3.9-11.3)
[2025-01-29 16:16] LABS: BLOOD UREA NITROGEN,BUN 11.0 mg/dL (7-18); CARBON DIOXIDE,CO2 24.0 mEq/L (21-32); CHLORIDE,CL 110.0 mEq/L (98-107); CREATININE 1.0 mg/dL (0.7-1.3); EST CRCL DRUG DOSING (CG) 71.13 mL/min; ESTIMATED GFR 79.0 mL/min (>60); GLUCOSE RANDOM 148.0 mg/dL (70-99); POTASSIUM,K 3.7 mEq/L (3.5-5.1); SODIUM,NA 143.0 mEq/L (136-145)
[2025-01-29] MEDS: Water For Injection, Sterile 20 ML ONE (17:25)
[2025-01-30 07:43] LABS: BASOPHILS ABSOLUTE AUTO 0.0 K/mm3 (0.0-0.2); BASOPHILS PERCENT AUTO 0.2 % (0.0-1.0); EOSINOPHILS ABSOLUTE AUTO 0.2 K/mm3 (0.0-0.4); EOSINOPHILS PERCENT AUTO 0.9 % (0.0-6.0); IMMATURE GRAN ABSOLUTE AUTO 0.23 K/mm3 (0.00-0.05); IMMATURE GRAN PERCENT AUTO 1.2 % (0.0-0.4); LYMPHOCYTES ABSOLUTE AUTO 3.3 K/mm3 (1.0-4.8); LYMPHOCYTES PERCENT AUTO 16.8 % (24.0-44.0); MEAN PLATELET VOLUME 12.9 fl (9.4-12.4); MONOCYTES ABSOLUTE AUTO 6.4 K/mm3 (0.0-0.8); MONOCYTES PERCENT AUTO 32.9 % (0.0-8.0); NEUTROPHILS ABSOLUTE AUTO 9.3 K/mm3 (1.8-7.7); NEUTROPHILS PERCENT AUTO 48.0 % (41.0-71.0); NRBC ABSOLUTE 0.00 (0.00-0.02); NRBC PERCENT 0.0 % (0.0-0.2); PLATELET COUNT,PLT 324 K/mm3 (150-400); RED BLOOD CELL COUNT 2.95 M/mm3 (4.52-5.90); WHITE BLOOD CELL COUNT,WBC 19.37 K/mm3 (3.9-11.3)
[2025-01-30 08:06] LABS: A/G RATIO 0.9 (1-2); ALANINE AMINOTRANSFERASE,ALT 24.0 U/L (16-63); ASPARTATE AMNIOTRANSFERASE,AST 18.0 U/L (15-37); BILIRUBIN TOTAL 0.5 mg/dL (0.2-1.0); BLOOD UREA NITROGEN,BUN 11.0 mg/dL (7-18); CARBON DIOXIDE,CO2 23.0 mEq/L (21-32); CHLORIDE,CL 109.0 mEq/L (98-107); CREATININE 1.0 mg/dL (0.7-1.3); EST CRCL DRUG DOSING (CG) 71.13 mL/min; ESTIMATED GFR 79.0 mL/min (>60); GLUCOSE RANDOM 163.0 mg/dL (70-99); POTASSIUM,K 3.6 mEq/L (3.5-5.1); PROTEIN TOTAL,TP 6.8 g/dl (6.4-8.2); SODIUM,NA 144.0 mEq/L (136-145)
[2025-01-30] MEDS: Propranolol 60 MG Cap.ER PO SCH (12:19)
[2025-01-31 10:56] LABS: BASOPHILS ABSOLUTE AUTO 0.0 K/mm3 (0.0-0.2); BASOPHILS PERCENT AUTO 0.2 % (0.0-1.0); EOSINOPHILS ABSOLUTE AUTO 0.3 K/mm3 (0.0-0.4); EOSINOPHILS PERCENT AUTO 1.6 % (0.0-6.0); IMMATURE GRAN ABSOLUTE AUTO 0.30 K/mm3 (0.00-0.05); IMMATURE GRAN PERCENT AUTO 1.7 % (0.0-0.4); LYMPHOCYTES ABSOLUTE AUTO 3.1 K/mm3 (1.0-4.8); LYMPHOCYTES PERCENT AUTO 17.5 % (24.0-44.0); MEAN PLATELET VOLUME 13.0 fl (9.4-12.4); MONOCYTES ABSOLUTE AUTO 5.1 K/mm3 (0.0-0.8); MONOCYTES PERCENT AUTO 29.0 % (0.0-8.0); NEUTROPHILS ABSOLUTE AUTO 8.8 K/mm3 (1.8-7.7); NEUTROPHILS PERCENT AUTO 50.0 % (41.0-71.0); NRBC ABSOLUTE 0.00 (0.00-0.02); NRBC PERCENT 0.0 % (0.0-0.2); PLATELET COUNT,PLT 364 K/mm3 (150-400); RED BLOOD CELL COUNT 2.92 M/mm3 (4.52-5.90); WHITE BLOOD CELL COUNT,WBC 17.63 K/mm3 (3.9-11.3)
[2025-01-31 13:55] VITALS: BP 121/62; PULSE 64
== END 2025-01-31 13:47 | disposition home or self-care (01) | DRG 871 ==
LOC: JD.ED 10:46 → JD.MS 14:20
PROVIDERS: ADMIT Family Medicine; ATTEND Family Medicine
PROC: 3E03329 Introduction of Other Anti-infective into Peripheral Vein, Percutaneous Approach (ICD-10-PCS; principal; 2025-01-27)
PROC: 30233N1 Transfusion of Nonautologous Red Blood Cells into Peripheral Vein, Percutaneous Approach (ICD-10-PCS; principal; 2025-01-27)
PROC: 5A09357 Assistance with Respiratory Ventilation, Less than 24 Consecutive Hours, Continuous Positive Airway Pressure (ICD-10-PCS; principal; 2025-01-27)
DX: A41.9 Sepsis, unspecified organism (principal); J18.9 Pneumonia, unspecified organism; J96.01 Acute respiratory failure with hypoxia; J44.0 Chronic obstructive pulmonary disease with (acute) lower respiratory infection; D84.821 Immunodeficiency due to drugs; H54.7 Unspecified visual loss; E78.5 Hyperlipidemia, unspecified; I25.10 Atherosclerotic heart disease of native coronary artery without angina pectoris; R65.20 Severe sepsis without septic shock; D46.9 Myelodysplastic syndrome, unspecified; I48.91 Unspecified atrial fibrillation; T45.1X5A Adverse effect of antineoplastic and immunosuppressive drugs, initial encounter; D64.81 Anemia due to antineoplastic chemotherapy; I10 Essential (primary) hypertension; N40.0 Benign prostatic hyperplasia without lower urinary tract symptoms; R59.1 Generalized enlarged lymph nodes; E11.9 Type 2 diabetes mellitus without complications; Z86.16 Personal history of COVID-19; Z90.49 Acquired absence of other specified parts of digestive tract; I25.2 Old myocardial infarction; Z98.890 Other specified postprocedural states; Z88.8 Allergy status to other drugs, medicaments and biological substances; Z91.040 Latex allergy status; Z79.899 Other long term (current) drug therapy; Z87.442 Personal history of urinary calculi; Z79.84 Long term (current) use of oral hypoglycemic drugs; Z88.1 Allergy status to other antibiotic agents
CPT/HCPCS: 36415; 36430; 70486; 70486-26; 71045; 71045-26; 71250; 71250-26; 80048; 80053; 80202; 81001; 82947; 83605; 83735; 85025; 85027; 86140; 86850; 86870; 86880; 86900; 86901; 86922; 87040; 87641; 93005; 94668; 94761; 97112-GP; 97116-GP; 97162-GP; 97165-GO; 97530-GP; 97535-GO; 99285; A4216; A9270-GY; J0692; J2405; J2543; J3373; J3375; J3480; J3490; J7030; J7050; P9016